=== PATIENT | female | born 1950 | race Caucasian/White ===

== ENCOUNTER → 2016-04-10 | Outpatient (CLI) | payer OTHER ==
--- NOTE | 2016-04-10 16:13 | MAMMOGRAPHY REPORT ---
BILATERAL DIGITAL SCREENING MAMMOGRAM WITH CAD: 04/10/2016 CLINICAL HISTORY: Routine screening. Patient has no complaints. TECHNIQUE: Current study was also evaluated with a Computer Aided Detection (CAD) system. Bilatera l CC and MLO views were obtained. COMPARISON: Comparison is made to exams dated: 06/21/2010 mammogram, 06/05/2009 mammogram, 05/26/2008 mammogram, and 04/14/2007 mammogram - [facility]. BREAST COMPOSITION: There are scattered areas of fibroglandular density in both breasts. FINDINGS: No suspicious masses, calcifications, or areas of architectural distortion are noted [facility]. There has been no significant interval change compared to prior exams. There is a sta ble benign intramammary lymph node in the right upper-outer quadrant. Small circumscribed benign-ap pearing 4 mm mass seen within the left central breast is also stable dating back to the 2007 exam. IMPRESSION: ACR BI-RADS CATEGORY 2: BENIGN There is no mammographic evidence of malignancy. A 1 year screening mammogram is recommended. The p atient will receive written notification of the results. Approximately 10% of breast cancers are not detected with mammography. A negative mammographic repor t should not delay biopsy if a clinically suggestive mass is present. Dorys Lundy M.D. ah/:04/10/2016 13:56:36 Shovel Logger: Mandie Ansari [facility] letter sent: Normal 1/2 BI-RADS Code: ACR BI-RADS Category 2: Benign
== END | disposition home or self-care (01) ==
LOC: C.MAMM 10:32
PROVIDERS: ATTEND Family Medicine
DX: Z12.31 Encounter for screening mammogram for malignant neoplasm of breast (principal)

== ENCOUNTER 2019-03-23 05:10 | Inpatient (IN) ==
--- NOTE | 2019-02-25 13:49 | PAT Medication Instructions ---
Medication Instructions Date of Service February 25, 2019 Home Medications Metamucil 2 tbsp PO QAM ibuprofen [Advil] 200 mg PO Q6H PRN ASK your surgeon for instructions ibuprofen [Advil] 200 mg PO Q6H PRN DO NOT take the morning of surgery Metamucil 2 tbsp PO QAM Other Notes If you have any questions please call us at [phone] or [phone] or [phone] or [phone]
--- NOTE | 2019-02-26 09:19 | Anesthesiology Consultation ---
Date of Service February 26, 2019 Assessment & Plan (1) Encounter for pre-operative examination: PCP Clearance (Bacilio MIKE) 02/24/19 = "Barring any significant abnormalities with preoperative testing, she is, at this time, considered an acceptable medical risk for the planned procedure and is medically cleared for right total knee arthroplasty as scheduled on March 23, 2019." Chart Review Chart Review: Acceptable Risk for Surgery (pending pre op testing -- labs, EKG and CXR) and Patient seen in Pre Admission Testing Consults Requested none Teaching & Discussion Instructed NPO after midnight before surgery, except medications with 15 cc of water. Medication instructions provided according to the PAT guidelines. History Surgery Operation Date: 03/23/19 07:00 Proposed Procedures p Right Total Knee Arthroplasty - Gokul Fontanez MD Height/Weight Height: 5 ft 4 in Weight: 87.5 kg Allergies Allergy/AdvReac Type Severity Reaction Status Date / Time bee venom protein (honey bee) Allergy Mild Hives Verified 02/25/19 10:17 Medications Home Medications Medication Instructions Recorded Confirmed Last Taken Metamucil 2 tbsp PO QAM 09/22/18 02/25/19 10/05/18 ibuprofen [Advil] 200 mg PO Q6H PRN 02/25/19 02/25/19 Unknown Past Medical History Medical History Osteoarthritis of right knee Scoliosis Exercise / Class Metabolic Activity II 4-5 Yardwork/Stairs/Walk up hill (Denies CP or SOB with 1 FOS) Past Surgical History Surgical History History of bilateral tubal ligation History of cholecystectomy History of colonoscopy History of dilatation and curettage History of tooth extraction Past Anesthesia History No Hx of Anesthesia Complications and No Family Hx of Anesthesia Complications History of PONV No Hx of PONV and No Hx of Motion Sickness Social History Smoking Status: Never smoker Do You Dip or Chew Tobacco: No Hx Alcohol Use: Yes Alcohol type: beer, wine and hard liquor alcohol intake frequency: a few times a week Hx Substance Use: No substance use type: does not use Review of Systems Pt denies any recent chest pain, shortness of breath, palpitations, cough, fever or URI. +morning congestion/post nasal drip Physical Exam Vital Signs BP: 106/69 P: 64bpm SPO2: 96% RA T: 98.3 F R: 12 ENMT Mouth: + dental bridge (upper L) and + chipped teeth (bottom L cuspid); no loose teeth Thyromental Distance: < 3.5 Finger Breadths (3) Mallampati Class: I Neck normal visual inspection; neck extension not limited Respiratory normal respiratory effort Auscultation: lungs clear to auscultation bilaterally Cardiovascular Rate/Rhythm: regular rate and regular rhythm Heart Sounds: no murmur Testing Laboratory Results 02/26/19 09:26 02/26/19 09:26 PT 10.4 Seconds (9.0-12.0) 02/26/19 09:26 INR 1.0 (0.9-1.1) 02/26/19 09:26 APTT 25.5 Seconds (21.0-31.0) 02/26/19 09:26 Blood Type B Positive 02/26/19 09:26 Antibody Screen NEGATIVE 02/26/19 09:26 Electrocardiogram Date: 02/26/19 Findings: + SB @ Chest X-Ray Date: 02/26/19 Findings: + NAD
--- NOTE | 2019-02-26 09:53 | XRay Report ---
XR chest Pre-admission PA/Lat CLINICAL HISTORY: Preoperative evaluation. COMPARISON STUDY: Chest radiograph May 23, 2009. FINDINGS: Lung volumes are normal. Lungs are clear. There is no pneumothorax or pleural effusion. Car diac size is normal. Mediastinal contours are normal. There is no evidence for pulmonary edema. Incid ental note is made of several healed left rib fractures. IMPRESSION: No acute cardiopulmonary findings. ACT 112: Negative or not required by law. Electronically signed by: Bola Stallworth M.D. 02/26/2019 9:52 AM
[2019-02-26 10:25] LABS: Basophils # (auto) 0.04 K/uL (0-0.2); Basophils % (auto) 0.7 %; Eosinophils # (auto) 0.11 K/uL (0-0.5); Hematocrit (blood only) 41.4 % (37-47); Hemoglobin 13.8 g/dL (12.0-16.0); Immature Granulocytes # (auto) 0.01 K/uL (0.00-0.02); Immature Granulocytes % (auto) 0.2 %; Lymphocytes # (auto) 1.86 K/uL (1.2-3.4); Lymphocytes % (auto) 33.6 %; Mean Corpuscular Hemoglobin 28.7 pg (25-34); Mean Corpuscular Hgb Conc 33.3 g/dL (32-36); Mean Corpuscular Volume 86.1 fL (80-100); Mean Platelet Volume 9.3 fL (7.4-10.4); Monocytes # (auto) 0.43 K/uL (0.11-0.59); Monocytes % (auto) 7.8 %; Neutrophils # (auto) 3.08 K/uL (1.4-6.5); Neutrophils % (auto) 55.7 %; Platelet Count 275 K/uL (130-400); RDW Coefficient of Variation 14.1 % (11.5-14.5); RDW Standard Deviation 44.4 fL (36.4-46.3); Red Blood Count 4.81 M/uL (4.2-5.4); White Blood Count 5.53 K/uL (4.8-10.8)
[2019-02-26 10:32] LABS: BUN Creatinine Ratio 15.9 (10-20); Creatinine Clr Calc Pharmacy 60.5 ml/min; Est GFR (African American) 69.7; Est GFR (Non-African American) 60.1; Potassium 3.9 mmol/L (3.5-5.1)
[2019-02-26 10:40] LABS: Partial Thromboplastin Ratio 0.9; Partial Thromboplastin Time 25.5 Seconds (21.0-31.0); Prothrombin Time 10.4 Seconds (9.0-12.0)
[2019-03-23] MEDS ORDERED: TRANEXAMIC ACID 1,000 MG **IV Intra-op IV SCH (06:00)
[2019-03-23] MEDS ORDERED: METOCLOPRAMIDE HCL 10 MG TABLET PO SCH (06:00)
[2019-03-23] MEDS ORDERED: ROPIVACAINE 0.5% HCL/PF 150 MG, BUPIVACAINE 0.5% MPF 30 ML, EPINEPHrine 0.15 MG, Ketoro... INFIL SCH (06:00)
[2019-03-23] MEDS ORDERED: TRAMADOL HCL 50 MG TABLET PO SCH (06:00)
[2019-03-23] MEDS ORDERED: CEFAZOLIN 2000MG 2,000 MG/15 ML SYR IV SCH (06:00)
[2019-03-23] MEDS ORDERED: OXYCODONE HCL 10 MG TABCR (OXYCONTIN) PO SCH (06:00)
[2019-03-23] MEDS ORDERED: CeleBREX 200 MG CAP PO SCH (06:00)
[2019-03-23] MEDS ORDERED: ACETAMINOPHEN 500 MG TAB PO SCH (06:00)
[2019-03-23] MEDS ORDERED: LR 500ML BOLUS, THEN 15ML/HR IV SCH (06:00)
[2019-03-23] MEDS ORDERED: cloNIDine HCL 0.1 MG/24 HR TRANSDERM SYS TD SCH (06:00)
[2019-03-23] MEDS ORDERED: dexAMETHasone 4 MG TAB PO SCH (06:00)
[2019-03-23] MEDS ORDERED: FAMOTIDINE 20 MG TAB PO SCH (06:00)
[2019-03-23] MEDS ORDERED: LR 60ML/HR IV SCH (06:00)
[2019-03-23] MEDS ORDERED: TRANEXAMIC ACID 1,000 MG **IV Pre-op IV SCH (06:00)
[2019-03-23] MEDS ORDERED: GABAPENTIN 300 MG CAP PO SCH (06:00)
[2019-03-23] MEDS ORDERED: BUPIVACAINE 0.5 % 5 MG/1 ML PF 10ML VIAL ONE (06:13)
[2019-03-23] MEDS ORDERED: PROPOFOL IV EMULSION 10 MG/ML 20 ML VIAL IV ONE ×3 (06:24→09:52)
[2019-03-23] MEDS ORDERED: LIDOCAINE HCL 2% 2 ML VIAL/AMP(20MG/ML) INFIL ONE (06:24)
[2019-03-23] MEDS ORDERED: MIDAZOLAM HCL 1 MG/ML 2ML VIAL ONE ×2 (06:24)
[2019-03-23] MEDS ORDERED: ONDANSETRON INJ 2 MG/ML 2 ML VIAL IV PRN ×2 (06:38→11:16)
[2019-03-23] MEDS ORDERED: ATROPINE SULFATE 0.1 MG/ML 10ML SYR IV PRN (06:38)
[2019-03-23] MEDS ORDERED: ePHEDrine sulfate 50 MG/ML AMP IV PRN (06:38)
[2019-03-23] MEDS ORDERED: fentaNYL citrate 100 MCG/2 ML VIAL IV PRN (06:38)
--- NOTE | 2019-03-23 06:43 | History & Physical Bridge Note ---
Date of Service March 23, 2019 History & Physical Bridge Note I have examined the patient, reviewed the History & Physical and in the interval since the performance of the History & Physical I have noted the following changes of clinical significance: no changes noted
[2019-03-23] MEDS ORDERED: BACITRACIN INJ 50,000 UNIT VIAL ONE (06:46)
[2019-03-23] MEDS ORDERED: ORTHO JOINT ANESTHETIC ONE (06:46)
[2019-03-23] MEDS ORDERED: VANCOMYCIN HCL 1000MG/20ML VIAL ONE (06:47)
[2019-03-23] MEDS ORDERED: ePHEDrine sulfate 50 MG/ML SYR ONE (09:29)
--- NOTE | 2019-03-23 10:18 | Operative Report ---
Post Operative Report Pre & Post Diagnosis Operation Date: 03/23/19 07:00 Pre-Op Diagnosis: Right Knee Arthritis Post-Op Diagnosis: Right Knee Arthritis I identified the patient and participated in the time-out.: Yes Procedure Operation Date: 03/23/19 07:00 Actual Procedures p Right Total Knee Arthroplasty(Right) - Gokul Fontanez MD Surgeon Gokul Fontanez M.D. Esthetician/Owner Dea Douglas PA-C Estimated Blood Loss 25 Findings Consistent with Post-Op Diagnosis Specimens bone and soft tissue Drains None Anesthesia Type MAC Spinal Regional Complications none Description of Procedure Patient was taken to the operating room and placed under spinal anesthesia. She was also given a peripheral nerve block preoperatively. She was given 2 g of IV Ancef for surgical prophylaxis. Time out was performed. She was prepped and draped in routine sterile fashion. I was present during the entire case and assisted with positioning, exposure, implantation of hardware, closure and dressings. Please see Dr. Fontanez's operative report for further detail. Patient was awakened and transferred to the recovery room in stable condition. I attest to the content of the Intraoperative Record and any orders documented therein. Any exceptions are noted below.
--- NOTE | 2019-03-23 10:49 | Operative Report ---
Post Operative Report Pre & Post Diagnosis Operation Date: 03/23/19 07:00 Pre-Op Diagnosis: Right Knee Arthritis Post-Op Diagnosis: Right Knee Arthritis I identified the patient and participated in the time-out.: Yes Procedure Operation Date: 03/23/19 07:00 Actual Procedures p Right Total Knee Arthroplasty(Right) - Gokul Fontanez MD Surgeon Gokul Fontanez MD Manager Bar Dea Douglas PA-C Estimated Blood Loss 25 Findings Consistent with Post-Op Diagnosis Specimens Bone and soft tissue Anesthesia Type MAC Regional Complications none Disposition Accompanied Patient To Recovery: No Disposition: Recovery Room Indications Patient 68 years old with end-stage arthritis of her right knee refractory to nonsurgical methods of management. She has elected to proceed with operative intervention. Description of Procedure Informed consent obtained. Patient identified. She identified the operative site as the right knee. I marked with my initials. Preop surgical timeout performed. Preop dose of IV antibiotics given. She was positioned supine on the OR table with a bump under the right calf tourniquet on the right thigh and a bump under the right hip. The leg was prepped and draped in the usual sterile fashion. DVT prophylaxis with foot pumps and postoperatively with early mobility and Lovenox. The examination under anesthesia revealed range of motion 0/10/115 with varus alignment and no significant varus or valgus laxity. She received TXA preoperatively. Limb exsanguinated with the Esmarch. Tourniquet inflated to 250 mmHg. A midline longitudinal incision was made followed by medial parapatellar arthrotomy. A medial soft tissue release was performed. The synovial reflection in the lateral gutter was released. Retropatellar fat pad resected. Cruciate ligaments were resected. Patella was easily everted. Soft tissue on the anterior aspect the distal femur was resected. There were grade 3 and 4 changes of the patella. There were grade 4 changes medial aspect of the lateral compartment and grade 4 changes with bony eburnation and wear in the medial compartment. Loss of medial meniscus. ACL looked small with large notch osteophytes. Osteophytes around the knee were removed. Cruciate ligaments were resected. A intramedullary alignment kvng was inserted into the tibia. The guide was aligned with the tibial tubercle and set to resect 10 off of the lateral side corresponding to a 4 mm medial cut. The guide was pinned into place and the Xomed limit kvng was utilized to confirm appropriate slope and frontal plane alignment. This cut was carefully made protecting the patellar tendon. The tibia was sized to a 4. A steamboat pilot hole was drilled into the distal femur followed by the insertion of the distal femoral cutting block. 6 degrees right knee valgus 14 mm thick cut was made. Cruciate ligaments were protected. Cut was made in the extension gap was a slightly tight but symmetric 10. The epicondylar axis was marked out and the distal femoral sizing guide was applied. It was a 4-1/2. The guide was set to 5 and the external rotation holes were drilled. A size 4 block was then utilized to half size the implant. Confirmed no notching of anterior tibia and the cuts were made protecting the collateral ligaments. The flexion gap was a symmetric 12.5. After little bit more releasing the extension gap was also a symmetric 12.5. The box cutting guide was applied lateralized pinned in place and the box cut was made. The size 4 femur was applied with good fit. The tibia was prepared with the keel and punch and the 12.5 spacer was inserted with full extension slight springiness good stability and full extension mid position and at 90 degrees. Attention was turned to the patella where it was measured to be 23 mm in thickness. The guide was set to preserve 15 mm of bone and the cut was made. The 38 paddle was selected aligned and lug holes drilled. Trialing showed lateral patellar tracking which was relieved at the end of the case with release of the tourniquet. Osteophytes in the back of the knee were removed. Soft tissues kept moist throughout the case. Ortho joint mix injected in the back the knee. Bony surfaces prepared with pulse lavage and dried. 2 bags of Simplex P cement were mixed and while in a doughy state the implants were cemented into place femur tibia and patella and the knee was held in full extension until the cement hardened. Prior to that the canals were plugged with bone. The remainder the Ortho joint mix was injected while the cement was hardening and once this was accomplished the tourniquet was let down after 100 minutes of inflation and meticulous hemostasis was performed. Trialing again was performed in the 12.5 give the best fit with range of motion and stability. Trace varus valgus laxity in mid position and no looseness in full extension or mid position. The knee was straight. The back the knee was inspected for cement and final irrigation and implantation of the spacer was applied. The knee was reduced. Patellar tracking was fine with no hands technique. Final irrigation was performed along with injection of the remainder of the Ortho joint mix. The extensor mechanism was closed above the equator the patella with interrupted #2 FiberWire and below the equator with running and interrupted #1 Vicryl. The skin was closed in layers with 0 and 2-0 Vicryl and alfonso on the skin. Composite patellar thickness was 23 mm at the conclusion of the procedure and gravity assisted flexion with the extensor mechanism closed was approximate 115 degrees. The leg was cleaned with wet and dry sponges and a soft sterile dressing was applied Xeroform 4 x 4's ABD full-length Sandro wrap and knee immobilizer. Patient was awakened from anesthesia without difficulty and taken to the recovery room in stable condition. The resected bone was sent for specimen. There were no complications. Counts were correct and blood loss is estimated to be 25 cc. An additional dose of TXA was given. At the conclusion of the operation spoke patient's family informed of my findings. Postoperative instructions were given. She will have Lovenox for DVT prophylaxis. Rehab according to the standard TKA protocol. She may weight-bear as tolerated. I attest to the content of the Intraoperative Record and any orders documented therein. Any exceptions are noted below.
--- NOTE | 2019-03-23 10:49 | Anesthesiology Progress Note ---
Date of Service March 23, 2019 Anesthesia Post Procedure Vital Signs Vital Signs: Temp Pulse Pulse Resp BP Pulse Ox 03/23/19 10:45 58 L 16 106/61 93 03/23/19 10:35 97.5 F L 63 20 106/53 L 93 03/23/19 10:25 62 16 98/63 L 93 03/23/19 10:18 97.5 F L 70 16 102/58 L 95 03/23/19 05:45 97.9 F 62 20 124/78 97 Pain Intensity Right Arm: Pain Intensity: 7 Transfer of Care Handoff Completed per policy Notes Mental Status: alert / awake / arousable and participated in evaluation Patient Amnestic to Procedure: Yes Nausea / Vomiting: adequately controlled Pain: adequately controlled Airway Patency, RR, SpO2: stable & adequate BP & HR: stable & adequate Hydration State: stable & adequate Neuraxial Anesthesia: was administered and sensory block is resolving Anesthetic Complications: no major complications apparent and Pt Satisfied with anesthetic care
--- NOTE | 2019-03-23 11:12 | XRay Report ---
XR knee RT 1 or 2V routine HISTORY: 68 years-old Female Surgical Post Op right knee total joint arthroplasty. History of degene rative joint disease COMPARISON: Leg length study 03/12/2019 TECHNIQUE: 2 views of the right knee FINDINGS: Right knee total joint arthroplasty and patellar resurfacing. Satisfactory alignment without acute fr acture or retained foreign body. Anterior midline skin alfonso are noted along with expected postsurg ical soft tissue swelling and deep tissue air. Arterial calcifications are noted. IMPRESSION: Satisfactory alignment of the right knee total joint arthroplasty. ACT 112: Negative or not required by law. The above report was generated using voice recognition software. It may contain grammatical, syntax o r spelling errors. Electronically signed by: Allan Staples M.D. 03/23/2019 11:11 AM
[2019-03-23] MEDS ORDERED: MAGNESIUM HYDROXIDE SUSP 30 ML UDC PO PRN (11:16)
[2019-03-23] MEDS ORDERED: OXYCODONE HCL IR 5 MG TAB (IMMEDIATE RELEASE) PO PRN (11:16)
[2019-03-23] MEDS ORDERED: bisacodyL 10 MG SUPP PR PRN (11:16)
[2019-03-23] MEDS ORDERED: HydrALAZINE HCL 20 MG/ML VIAL IV PRN (11:16)
[2019-03-23] MEDS ORDERED: METOCLOPRAMIDE HCL INJ 5 MG/ML 2 ML VIAL IV PRN (11:16)
[2019-03-23] MEDS ORDERED: HYDROmorphone INJ 1 MG/ML SYRINGE IV PRN (11:16)
[2019-03-23] MEDS ORDERED: NALOXONE HCL 0.4 MG/1 ML VIAL/CARP IV PRN (11:16)
[2019-03-23] MEDS: CHECK CLONIDINE PATCH PLACEMENT SCH ×3 (11:46→23:02)
[2019-03-23] MEDS: KETOROLAC TROMETHAMINE 15 MG/ML VIAL IV SCH ×3 (11:57→23:02)
[2019-03-23] MEDS: SODIUM CHLORIDE 0.9% 1000ML 1,000 ML IV SCH ×2 (11:57→21:33)
[2019-03-23] MEDS: ACETAMINOPHEN 500 MG TAB PO SCH ×2 (14:19→22:56)
[2019-03-23] MEDS: TRAMADOL HCL 50 MG TABLET PO PRN ×3 (14:25→20:53)
--- NOTE | 2019-03-23 15:17 | Orthopedic Progress Note ---
Date of Service March 23, 2019 Assessment & Plan (1) Osteoarthritis of right knee: POD 0 - Right total knee arthroplasty May be out of bed, WBAT RLE with knee immobilizer and walker assistance Ice to right knee as needed for pain/swelling Keep dressings intact, reinforce as needed. Allowed for bedside exercises, encouraged knee extension and ankle pumps. Pain medication as prescribed Start Lovenox tonight for DVT prophylaxis. Continue Koffi stockings and AV impulse boots. Regular diet as ordered. PT/OT to start tomorrow Case management for discharge planning. She would like to go home tomorrow with in home nursing and PT. Reviewed post operative x-rays with patient All questions answered, will discuss findings with Dr. Fontanez Will re-eval in AM. Present on Admission?: Yes Subjective Patient doing well, resting in bed, daughters at bedside. Right knee with ice. Denies significant pain, some pain, just took some Tramadol. Denies numbness or tingling right leg. Tolerated lunch. Denies headaches, shortness of breath or chest pain. Physical Exam Physical Exam: Right knee: Dressings clean, dry, intact. Ice in place. No calf tenderness with palpation. Able to dorsiflex 4+/5 due to spinal. Distal sensation normal, dorsalis pedis pulse 1+. Foot warm, moves toes well. 5/5 strength with plantarflexion. Results & Data Vital Signs (Past 12 Hours) Vital Signs Temp Pulse Pulse Pulse Resp BP Pulse Ox 03/23/19 13:55 36.3 C L 81 18 120/70 96 03/23/19 13:03 36.9 C 72 16 129/74 96 03/23/19 12:03 56 L 16 122/77 95 03/23/19 11:28 36.5 C 67 16 114/71 94 03/23/19 10:45 58 L 16 106/61 93 03/23/19 10:35 36.4 C L 63 20 106/53 L 93 03/23/19 10:25 62 16 98/63 L 93 03/23/19 10:18 36.4 C L 70 16 102/58 L 95 03/23/19 10:00 36.4 C L 62 16 111/70 94 03/23/19 05:45 36.6 C 62 20 124/78 97 Diagnostic Findings XR knee RT 1 or 2V routine HISTORY: 68 years-old Female Surgical Post Op right knee total joint arthroplasty. History of degenerative joint disease COMPARISON: Leg length study 03/12/2019 TECHNIQUE: 2 views of the right knee FINDINGS: Right knee total joint arthroplasty and patellar resurfacing. Satisfactory alignment without acute fracture or retained foreign body. Anterior midline skin alfonso are noted along with expected postsurgical soft tissue swelling and deep tissue air. Arterial calcifications are noted. IMPRESSION: Satisfactory alignment of the right knee total joint arthroplasty.
[2019-03-23] MEDS: CEFAZOLIN 2000MG 2,000 MG/15 ML SYR IV SCH ×2 (15:38→22:56)
[2019-03-23] MEDS: DOCUSATE SODIUM 100 MG CAP PO SCH (20:54)
[2019-03-23] MEDS ORDERED: SENNA 8.6 MG TAB PO SCH (21:00)
[2019-03-23] MEDS: ENOXAPARIN INJ 30 MG/0.3 ML SYR SQ SCH (22:56)
[2019-03-24] MEDS: TRAMADOL HCL 50 MG TABLET PO PRN ×3 (03:26→13:13)
[2019-03-24] MEDS: KETOROLAC TROMETHAMINE 15 MG/ML VIAL IV SCH (05:21)
[2019-03-24] MEDS: ACETAMINOPHEN 500 MG TAB PO SCH ×2 (05:21→13:13)
[2019-03-24 05:53] LABS: Hemoglobin 10.8 g/dL (12.0-16.0); Mean Corpuscular Hemoglobin 28.6 pg (25-34); Mean Corpuscular Hgb Conc 33.8 g/dL (32-36); Mean Corpuscular Volume 84.9 fL (80-100); Platelet Count 198 K/uL (130-400); RDW Coefficient of Variation 14.2 % (11.5-14.5); RDW Standard Deviation 44.2 fL (36.4-46.3); Red Blood Count 3.77 M/uL (4.2-5.4); White Blood Count 7.26 K/uL (4.8-10.8)
[2019-03-24 06:22] LABS: BUN Creatinine Ratio 20.7 (10-20); Calcium 7.9 mg/dl (8.5-10.1); Creatinine Clr Calc Pharmacy 73.7 ml/min; Est GFR (African American) 87.7; Est GFR (Non-African American) 75.7
[2019-03-24] MEDS ORDERED: dexAMETHasone 4 MG TAB PO SCH (08:00)
--- NOTE | 2019-03-24 08:03 | Anesthesiology Progress Note ---
Date of Service March 24, 2019 Anesthesia Post Procedure Vital Signs Vital Signs: Temp Pulse Pulse Pulse Resp BP Pulse Ox 03/24/19 07:49 36.9 C 65 13 100/68 96 03/24/19 03:13 36.7 C 72 16 93/60 L 96 03/23/19 22:54 36.7 C 68 16 106/64 94 03/23/19 20:30 36.4 C L 70 16 119/68 96 03/23/19 15:54 36.5 C 66 16 114/71 94 03/23/19 13:55 36.3 C L 81 18 120/70 96 03/23/19 13:03 36.9 C 72 16 129/74 96 03/23/19 12:03 56 L 16 122/77 95 03/23/19 11:28 36.5 C 67 16 114/71 94 03/23/19 10:45 58 L 16 106/61 93 03/23/19 10:35 36.4 C L 63 20 106/53 L 93 03/23/19 10:25 62 16 98/63 L 93 03/23/19 10:18 36.4 C L 70 16 102/58 L 95 03/23/19 10:00 36.4 C L 62 16 111/70 94 Pain Intensity Right Arm: Pain Intensity: 7 Right Knee: Pain Intensity: 6 Notes Mental Status: alert / awake / arousable and participated in evaluation Patient Amnestic to Procedure: Yes Nausea / Vomiting: adequately controlled Pain: adequately controlled Airway Patency, RR, SpO2: stable & adequate BP & HR: stable & adequate Hydration State: stable & adequate Neuraxial Anesthesia: was administered and sensory block resolved Anesthetic Complications: no major complications apparent and Pt Satisfied with anesthetic care
[2019-03-24] MEDS: CHECK CLONIDINE PATCH PLACEMENT SCH (08:38)
[2019-03-24] MEDS: DOCUSATE SODIUM 100 MG CAP PO SCH (08:38)
[2019-03-24] MEDS ORDERED: MULTIVITAMIN TAB PO SCH (09:00)
[2019-03-24] MEDS ORDERED: PSYLLIUM 58.6% POWDER PACKET PO SCH (09:00)
[2019-03-24] MEDS: ENOXAPARIN INJ 30 MG/0.3 ML SYR SQ SCH (09:40)
--- NOTE | 2019-03-24 10:36 | Progress Note ---
DATE: 03/24/2019 She is resting comfortably in bed. She did exceptionally well with physical therapy. Her pain is well controlled, and she is tolerating a regular diet. She has had no chest pain or shortness of breath. She has not been lightheaded or dizzy. She is afebrile. Her vital signs are stable, but her blood pressure is running a little bit on the low side. We will discontinue the clonidine patch. Urine output is adequate. White count 7, hemoglobin 11, hematocrit 32, platelets 198. PRP is noted. Dorsalis pedis is 1+. Sensation normal. Strength ankle and toe plantar flexion, dorsiflexion 5/5. Her calf is not tender. She has slight flexion in her knee. Dressing is clean and dry. X-RAYS: X-rays show no evidence of complication. The arthroplasty is well-positioned. Findings and x-rays have been reviewed with her. IMPRESSION: Acute blood loss anemia which is asymptomatic. This is related to surgery. She is also status post a right total knee replacement. PLAN: The plan is to have her eat lunch and do afternoon PT. If she does well with physical therapy and her pain is well controlled, we will consider discharging her home. The plan will be for home health nursing and PT. We talked about her medications. Pain medicine, blood thinner, regular meds, stool softener. She will need a CBC next week. She will do PT and OT per protocol. She can be out of the knee immobilizer, but always needs to walk with walker. We talked about therapy and specifically getting her knee straight with heel props. Bathing instructions are given. If she has any problems with fevers, swelling, pain and drainage, numbness, tingling, pain or any other issues, please call the office. She has a followup appointment in 2 weeks for wound check and staple removal.
--- NOTE | 2019-03-25 09:39 | Discharge Summary ---
Date of Service March 25, 2019 Discharge Data Consultations 03/23/19 11:16 Consult Case Management - Discharge Planning Routine Procedures Performed Operation Date: 03/23/19 07:00 Actual Procedures p Right Total Knee Arthroplasty(Right) - Gokul Fontanez MD Hospital Course (1) Osteoarthritis of right knee: Patient was admitted to the [facility] after undergoing and elective right total knee arthroplasty for end-stage osteoarthritis. Her surgery was performed by Dr. Gokul Fontanez. Surgery was on March 23, 2019. She tolerated the surgery well without any intraoperative complications. Her surgery was performed with spinal anesthesia and peripheral nerve block. She was given 2 g of IV Ancef for surgical prophylaxis and this was continued for 24 hours after her procedure. She was given tranexamic acid preoperatively and postoperatively for bleeding control. In the recovery room an x-ray of her right knee was obtained and showed a stable right knee prosthesis with no evidence of fracture. Neutral alignment. Postoperatively, she was allowed out of bed, weight-bear as tolerated on her right lower extremity with the assistance of a walker and any immobilizer on her right knee. She was instructed to ice and elevate for swelling. She was started on Lovenox 30 mg twice a day the evening of her surgery. She was also given AV impulse boots and AUDI stockings for DVT prophylaxis. She was given a regular diet which she tolerated well during her inpatient stay. Her pain was well controlled and pain medications were available to her which consisted of IV Dilaudid, oxycodone, tramadol, Toradol and Tylenol. She was seen and evaluated by physical therapy and occupational therapy and was safe and comfortable when out of bed. She was taught exercises that she can do on her own at home. She was encouraged to work on extension of her right knee due to her preoperative flexion contracture. She was medically stable during her inpatient stay and no inpatient medicine consult was obtained. Her vital signs remained stable. She was seen and evaluated by case management for disposition needs. She chose to go home with in-home health and physical therapy. This was arranged by the residential case manager. Due to no postoperative complications she was deemed safe for home by therapy and was discharged to her home with her daughters in stable condition on March 24, 2019. (2) Acute blood loss anemia: She did develop postoperative acute blood loss anemia due to her having a right total knee arthroplasty. She remained asymptomatic during her inpatient stay. This will be monitored as an outpatient with a repeat CBC on March 29, 2019. She was instructed to call with any symptoms which include a racing heartbeat, lightheadedness or dizziness, or syncopal episodes. Discharge Instructions New Medicine: * You will likely be taking one or more of these medications: 1. Lovenox 30 mg SQ - You will be on Lovenox for 2-4 weeks after surgery to prevent blood clots. Do not take anti-inflammatory pills (Advil or Aleve) while on Lovenox. Aspirin, 81 mg is OK. - script sent electronically to pharmacy 2. Oxycodone - Take, as directed, when you need it, every four to six hours to control your pain. - script sent electronically to pharmacy 3. Tramadol - take, as directed, when you need it, every four to six hours to control your pain. - script sent electronically to pharmacy 3. Colace & Senokot - Take to prevent constipation which can be caused by narcotics. These can be bought [id number] at the pharmacy. 4. Tylenol - take 500mg-1000mg every 8 hours as needed for mild pain. This can be bought over the counter at the pharmacy. * The most common side effects of pain medicine and iron are nausea and constipation. If nausea or constipation is too much of a problem or if you have any questions about your new medicines or doses, call [facility] at . We will try to help you manage these issues. "VERY IMPORTANT TO READ AND REVIEW" Blood Clots and Blood Thinning Medicine: * You are given Lovenox during the immediate post-operative period to lessen the risk of blood clots forming in your legs and/or lungs. Lovenox is usually given for 2-4 weeks after surgery. * You will need to get a CBC drawn on Friday03/29/19. Script provided. Have drawn by home health or go to outpatient clinic to have drawn. Will be drawn at facility if you are at inpatient rehab or penitentiary facility. Physical Therapy: * Do your physical therapy at home. These are the exercises you learned while in the hospital (quad sets, leg raises, calf pumps, gluteal squeezes, knee bending, and heel props.) You should do these exercises 3-4 times per day. * You will either go to inpatient rehab ([facility]), home with Home Therapy and nursing or home with outpatient rehab. You should do rehab with the therapist 2-3 times per week. You should do therapy on your own daily. * You may bear full weight on your leg with crutches or walker unless otherwise advised. Home Exercise: * You were shown a series of exercises (heel props, heel slides, etc.) in the hospital. Do these exercises three to four times each day including the exercises you were shown in physical therapy. Walking: * You may be up for short periods of time. Standing and walking for 1-2 hours at a time is usually okay. You should not stand or walk for excessive periods of time as this may Cause increased pain and swelling. SELF CARE INSTRUCTIONS AFTER TOTAL KNEE REPLACEMENT A. You may need to continue a physical therapy program after discharge from the hospital. There are several options available to you. Your doctor will assist you in selecting the best one for you. 1. An out-patient facility 2 to 3 times a week for therapy or home therapy. 2. Continue working on all exercises taught to you in the hospital. Your goals should be to increase bending of your knee to 90 degrees and beyond and to fully straighten your knee. B. Your therapist will notify you when you are able to progress from a walker to a cane. C. Wear TEDS as much as possible.~ They may be removed at night for laundering. D. Do not place a pillow behind your knee when resting. A pillow at your ankle is okay. E. Ice your knee 15-20 minutes every 2-3 hours and elevate it above the level of your heart. F. You may shower on the fourth day after surgery (Friday) using regular soap and water. Do not submerge until the wound is completely healed (approximately 2 weeks). You may shower immediately. If the dressing comes off, you may get incision wet after the 4th day of surgery. Patient incision dry. Redress with light dressing if necessary. G. Anyone who is touching your surgical incision area should wash their hands and wear gloves. H. Keep your incision covered with gauze pads under the AUDI hose until it is dry. I. Dressing to be changed on by home health. Apply light dressing to left knee and AUDI stocking. Reinforce dressing as needed. VERY IMPORTANT TO READ AND REVIEW A. YOU WILL BE GIVEN AN ORDER AT DISCHARGE FOR CBC (BLOOD WORK). PLEASE HAVE THIS DONE INSTRUCTED. PLEASE CALL OUR OFFICE AFTER YOUR BLOODWORK IS COMPLETE SO WE CAN TRACK YOUR RESULTS. IF YOU ARE GOING TO OUTPATIENT PHYSICAL THERAPY, YOU WILL NEED TO GO TO OUTPATIENT TESTING TO HAVE IT DRAWN. B. There are a few signs you need to watch for after you are home. Call [facility] if you notice any of the followin. Increased severe knee pain. Some pain is expected especially when you exercise. 2. Increased swelling in your leg or knee; pain or swelling of the calf muscle in either lower leg. 3. Any fluid drainage from the incision. 4. Shortness of breath or chest pain. 5. Numbness and tingling in the surgical extremity C. Please call [facility] at if you have any concerns or questions about your operation or recovery. The doctor or his nurse will return your call promptly. D. Do not have any elective dental work or other elective procedures done for 6 weeks after your knee replacement. When you have any invasive procedure (dental cleaning, extraction, colonoscopy etc) performed, you will need to take antibiotics to prevent infection from developing in your artificial joint. Tell your other health care providers you have an artificial joint. My office will supply you with further information and the antibiotics. Call your doctor if: * Temperature above 101 degrees F. * Pain not relieved by pain medicine ordered. * Increased drainage or redness from incision. * Notify your doctor with any questions or concerns.
== END 2019-03-24 16:27 | disposition home health service (06) | DRG 470 ==
LOC: ASU 05:10 → 3E 10:24

== ENCOUNTER 2024-03-22 05:19 | Observation (INO) ==
--- NOTE | 2024-02-09 14:46 | PAT Medication Instructions ---
Medication Instructions Date of Service February 09, 2024 Home Medications Medication Instructions Recorded apixaban 5 mg tablet (Eliquis) 5 mg PO BID #180 tabs 08/24/23 psyllium husk 3.4 gram/5.4 gram oral powder (Metamucil) 2 tbsp PO QAM ascorbate calcium (vitamin C) 500 mg tablet 500 mg PO DAILY calcium carbonate [Calcium 500] 500 mg PO QAM cholecalciferol (vitamin D3) 2,000 mg PO QAM zinc citrate 50 mg PO QAM apixaban 5 mg tablet (Eliquis) 5 mg PO BID aspirin 81 mg tablet,delayed release (Adult Aspirin Regimen) 81 mg PO QAM rosuvastatin 40 mg tablet 40 mg PO QAM metoprolol succinate 50 mg tablet,extended release 24 hr 50 mg PO QAM ASK your prescriber and surgeon aspirin 81 mg tablet,delayed release (Adult Aspirin Regimen) 81 mg PO QAM apixaban 5 mg tablet (Eliquis) 5 mg PO BID (From anesthesia perspective, apixaban/Eliquis needs to be stopped 72 hours/3 days before surgery. Please check if okay with doctor that prescribes this to you) DO NOT take the morning of surgery psyllium husk 3.4 gram/5.4 gram oral powder (Metamucil) 2 tbsp PO QAM ascorbate calcium (vitamin C) 500 mg tablet 500 mg PO DAILY calcium carbonate [Calcium 500] 500 mg PO QAM cholecalciferol (vitamin D3) 2,000 mg PO QAM zinc citrate 50 mg PO QAM Take morning of surgery With a small sip of water, OTHERWISE NOTHING TO EAT OR DRINK AFTER MIDNIGHT: rosuvastatin 40 mg tablet 40 mg PO QAM metoprolol succinate 50 mg tablet,extended release 24 hr 50 mg PO QAM Other Notes If you have any questions please call us at [phone] or [phone] or [phone] or [phone]
--- NOTE | 2024-02-17 09:52 | Anesthesiology Consultation ---
Date of Service February 17, 2024 Assessment & Plan (1) Encounter for pre-operative examination: - Infectious disease screening: Per assessment on 02/17/24- No known recent infectious disease contacts or current infectious disease symptoms. - Outpatient joint assessment: Pt currently scheduled for inpatient pathway. If surgeon requests review for outpatient joint pathway, patient is not recommended candidate for outpatient joint program from anesthesia standpoint based on available information. - S/P Right TKA (03/23/19): SAB at L4-5 (1 attempt) + regional at [facility] - Cardiology visit (12/04/23): "11/2023 NUC STRESS- without ischemia.. 11/2023 CT- Agatston Calcium Score is 1890.. CHADSVAS score 2.. Baseline echo pending. Advised f/u with PCP for ? vaginal bleeding vs. Hematuria.. Preop CV risk stratification- low cardiac risk for orthopedic surgery if indicated." > No vaginal bleeding or hematuria complaints noted at subsequent [facility] PCP evaluation 12/28/23. Echo done 01/13/24 was unremarkable. - Cardiology note (12/04/23): "..Nondiagnostic due to inability to achieve target heart rate normal limits is 98% MPHR and 1 yesterday that it was actually just medically stable for this procedure and anesthetic agent. Patient is low cardiac risk. Nuclear stress testing today is normal. May hold Eliquis for 48 hours if needed. May hold baby ASA if needed as well." Patient subsequently seen in PAT 02/17/24 and indicates she was provided with corrected preop Eliquis instructions to hold 72 hours prior to surgery. Patient advised that this is needed from neuraxial anesthesia perspective as well- Patient voiced understanding- indicates she will be holding 72 hours preop. Chart Review Chart Review: Acceptable Risk for Surgery and Patient seen in Pre Admission Testing Teaching & Discussion Pre-Anesthesia Teaching/Discussion Notes: Instructed NPO after midnight before surgery,except medications with 15 cc of water. Medication instructions provided according to the [facility] guidelines. History Surgery Operation Date: 03/22/24 09:00 Proposed Procedures p Right Anterior Total Hip Arthroplasty - Immanuel Bryan DO Height/Weight Height: 5 ft 4 in Weight: 89.6 kg Allergies Allergy/AdvReac Type Severity Reaction Status Date / Time adhesive Allergy Intermediate Rash Verified 02/09/24 08:33 bee venom protein (honey bee) Allergy Mild Hives Verified 02/09/24 08:33 No Known Drug Allergies Allergy Verified 02/09/24 08:33 Medications Home Medications Medication Instructions Recorded Confirmed Last Taken psyllium husk 3.4 gram/5.4 gram 2 tbsp PO QAM 09/22/18 02/09/24 03/21/19 08:00 oral powder (Metamucil) ascorbate calcium (vitamin C) 500 500 mg PO DAILY 08/18/20 02/09/24 Unknown mg tablet calcium carbonate [Calcium 500] 500 mg PO QAM 12/25/21 02/09/24 Unknown cholecalciferol (vitamin D3) 2,000 mg PO QAM 12/03/22 02/09/24 Unknown zinc citrate 50 mg PO QAM 12/03/22 02/09/24 Unknown apixaban 5 mg tablet (Eliquis) 5 mg PO BID #180 tabs 08/24/23 02/09/24 Unknown aspirin 81 mg tablet,delayed 81 mg PO QAM 12/29/23 02/09/24 Unknown release (Adult Aspirin Regimen) rosuvastatin 40 mg tablet 40 mg PO QAM 12/29/23 02/09/24 Unknown metoprolol succinate 50 mg 50 mg PO QAM 02/09/24 02/09/24 Unknown tablet,extended release 24 hr Past Medical History Medical History Anemia Per records, patient unaware Arthritis Cystocele, midline Hyperlipidemia Kidney stones Melanoma Moh's procedure 02/10/24- Great toe Osteoporosis Paroxysmal A-fib Dx 12/[address] Doshi Scoliosis Exercise / Class Metabolic Activity II 4-5 Yardwork/Stairs/Walk up hill (one FS (No CP, no SOB)) Past Family History Family History Mother , at age 80, [place] Diabetes Heart disease Myocardial infarction Cardiac disorder Father , at 76 secondary to [place] Myocardial infarction Stroke Sister Breast cancer Seizure Stroke Denies family history of Ovarian cancer Prostate cancer Colorectal cancer Past Surgical History Surgical History History of bilateral tubal ligation History of bladder surgery sling History of cholecystectomy History of colonoscopy History of dilatation and curettage History of knee replacement Right TKA (03/23/19): SAB at L4-5 (1 attempt) + regional at [facility] History of tooth extraction Past Anesthesia History No Hx of Anesthesia Complications and No Family Hx of Anesthesia Complications History of PONV No Hx of PONV and No Hx of Motion Sickness Social History Smoking Status: Never smoker Do You Dip or Chew Tobacco: No Hx Alcohol Use: Yes Alcohol type: beer alcohol intake frequency: holidays/special occasions only Hx Substance Use: No substance use type: does not use Review of Systems Patient denies chest pain, shortness of breath, dyspnea on exertion, fever, chills, cough, wheezing, palpitations. Physical Exam Vital Signs BP 99/65 P 64 TEMP 98.2 SP02 95%RA RESP 18 Physical Full cervical extension range of motion. Full TMJ range of motion. TMD 3 finger breaths Mallampati Score I Dentition: missing molars, crown Lungs: clear throughout to auscultation Cardiac: regular rate and rhythm, no murmurs noted Spine: normal Carotid arteries: negative bruit Extremities: no LE edema Lab Results Anesthesia Preop Results Results Anesthesia Widget: WBC 6.01 K/ul (4.8-10.8) 02/17/24 Hgb 12.3 g/dl (12.0-16.0) 02/17/24 Hct 37.2 % (37.0-47.0) 02/17/24 Plt 235 K/uL (130-400) 02/17/24 Na 138 mmol/L (136-145) 02/17/24 K 3.7 mmol/L (3.5-5.1) 02/17/24 Cl 102 mmol/L (98-107) 02/17/24 CO2 31 mmol/L (21-32) 02/17/24 BUN 15 mg/dl (6-23) 02/17/24 Creat 0.67 mg/dl (0.6-1.2) 02/17/24 Glucose Level 136 mg/dl (70-99(Fasting)) H 02/17/24 PT 11.2 Seconds (9.0-12.0) 02/17/24 PTT 28 Seconds (21-31) 02/17/24 INR 1.0 (0.9-1.1) 02/17/24 Blood Type B Positive 02/17/24 Antibody Screen NEGATIVE 02/17/24 Testing Electrocardiogram Date: 12/04/23 SB at 57bpm. RSR (V1)- nondiagnostic. "Probably normal" Chest X-Ray Date: 02/17/24 FINDINGS: No lines and tubes are seen. Calcified aortic knob is seen. The lungs are clear. No evidence of pleural effusion or pneumothorax. IMPRESSION: No acute chest disease. Echocardiogram Date: 01/13/24 Small left ventricle. EF 55-60%. Thickened aortic valve. Mild MR. Grade 1 diastolic dysfunction. Stress Test Date: 12/04/23 Type: nuclear SPECT perfusion images are considered to be within normal limits. No significant ischemia/infarction. LVEF 76%.
--- NOTE | 2024-03-18 07:49 | History & Physical Report ---
Date of Service March 18, 2024 Assessment & Plan (1) Arthritis of right hip: We will proceed with a right anterior total of arthroplasty. Postoperatively she will be started on Eliquis for DVT prophylaxis and kept overnight in the hospital for postop medical management. She plans to use home health upon dis charge. History of Present Illness Chief Complaint: Osteoarthritis of the right hip. Primary Care Provider: Karen Horner DO Cherelle is a pleasant 73-year-old female who has been dealing with chronic increasing right hip and groin pain. She saw my partner, Dr. 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 After failing conservative treatment, she has elected to proceed with a right anterior total of arthroplasty. Allergies Allergy/AdvReac Type Severity Reaction Status Date / Time adhesive Allergy Intermediate Rash Verified 02/09/24 08:33 bee venom protein (honey bee) Allergy Mild Hives Verified 02/09/24 08:33 No Known Drug Allergies Allergy Verified 02/09/24 08:33 Home Medications Medication Instructions Recorded Confirmed Type psyllium husk 3.4 gram/5.4 gram 2 tbsp PO QAM 09/22/18 02/09/24 History oral powder (Metamucil) ascorbate calcium (vitamin C) 500 500 mg PO DAILY 08/18/20 02/09/24 History mg tablet calcium carbonate [Calcium 500] 500 mg PO QAM 12/25/21 02/09/24 History cholecalciferol (vitamin D3) 2,000 mg PO QAM 12/03/22 02/09/24 History zinc citrate 50 mg PO QAM 12/03/22 02/09/24 History apixaban 5 mg tablet (Eliquis) 5 mg PO BID #180 tabs 08/24/23 02/09/24 Rx aspirin 81 mg tablet,delayed 81 mg PO QAM 12/29/23 02/09/24 History release (Adult Aspirin Regimen) rosuvastatin 40 mg tablet 40 mg PO QAM 12/29/23 02/09/24 History metoprolol succinate 50 mg 50 mg PO QAM 02/09/24 02/09/24 History tablet,extended release 24 hr Past Med/Surg History Problem List Medical History Anemia Per records, patient unaware Paroxysmal A-fib Dx 12/[address] Doshi Arthritis Cystocele, midline Melanoma Moh's procedure 02/10/24- Great toe Kidney stones Hyperlipidemia Osteoporosis Scoliosis Surgical History History of bladder surgery sling History of knee replacement Right TKA (03/23/19): SAB at L4-5 (1 attempt) + regional at [facility] History of bilateral tubal ligation History of dilatation and curettage History of colonoscopy History of cholecystectomy History of tooth extraction Family History Mother , at age 80, [place] Diabetes Heart disease Myocardial infarction Cardiac disorder Father , at 76 secondary to [place] Myocardial infarction Stroke Sister Breast cancer Seizure Stroke Denies family history of Ovarian cancer Prostate cancer Colorectal cancer Social History Smoking Status: Never smoker Second Hand Exposure: No; Do You Dip or Chew Tobacco: No; Tobacco Cessation Education Requested by Patient: No Hx Alcohol Use: Yes Alcohol type: beer Alcohol Intake Frequency: Monthly or Less Hx Substance Use: No Preferred Language: Upper Sorbian Communication Ability: Effective Visual Impairment: No Limitations Hearing Ability: Normal Capsule Inspector Required: No Beliefs That Will Affect Care: None marital status: Single Current Living Situation: Family current occupational status: retired current occupation: helps at [employer] Other Information That Helps Us Care for You: No Feels Safe at Home: Yes Safety Concerns: Feels Safe At This Time Childhood Exposure to Second-Hand Smoke: No Diet: regular Diet Comment: regular caffeine: Yes during the past year weight has: remained stable Dental Care, Regularly: Yes Physical Activity Frequency: Daily Seatbelt Use: always Sunscreen Use: Yes Assistive Devices: Glasses Review of Systems All systems reviewed & are unremarkable except as noted in HPI & below. Physical Exam On physical exam of the right hip, she cannot lie flat on the table. Her hip is flexed at 30 degrees. She is severe pain with any range of motion.. Constitutional WD/WN, vitals as above Eyes PERRL, conjunctivae normal, anicteric sclerae ENMT external ear and nose normal, oropharynx normal Neck trachea midline, no thyromegaly Respiratory normal respiratory effort Cardiovascular RRR, no murmur, no edema Gastrointestinal (Abdomen) normal bowel sounds, soft, nontender, no hepatosplenomegaly Psychiatric A+Ox3, euthymic affect Results & Data Results & Data Laboratory Results . Diagnostic Findings X-rays of the right hip show severe osteoarthritis with joint space narrowing, osteophyte formation, and [id number] articulation. PG Care Time/CCT Total # of Minutes Spent Total Time Spent with Patient: Total time spent is greater than 50% in coordination of care (as documented) at patient's floor/unit and/or counseling patient: Coding Level of Care Code None Diagnoses Arthritis of right hip M16.11
[2024-03-22] MEDS: LR 500ML BOLUS, THEN 15ML/HR IV SCH (06:04)
[2024-03-22] MEDS: GABAPENTIN 300 MG CAP PO SCH (06:05)
[2024-03-22] MEDS: dexAMETHasone**PF** 10 MG/ML VIAL IV SCH (06:05)
[2024-03-22] MEDS: ACETAMINOPHEN 500 MG TAB PO SCH ×2 (06:05→15:49)
[2024-03-22] MEDS: FAMOTIDINE 20 MG TAB PO SCH (06:05)
[2024-03-22] MEDS: LR 60ML/HR IV SCH (06:05)
[2024-03-22] MEDS ORDERED: ROPIVACAINE 0.5% 5 MG/ML 30 ML VIAL ONE (06:17)
[2024-03-22] MEDS ORDERED: MIDAZOLAM HCL 1 MG/ML 2ML VIAL ONE ×2 (06:27→07:46)
[2024-03-22] MEDS ORDERED: LIDOCAINE 2% 2 ML VIAL/AMP(20MG/ML) INFIL ONE (06:27)
[2024-03-22] MEDS ORDERED: ONDANSETRON INJ 2 MG/ML 2 ML VIAL ONE (06:27)
[2024-03-22] MEDS ORDERED: PROPOFOL IV EMULSION 10 MG/ML 20 ML VIAL IV ONE ×3 (06:27→08:48)
[2024-03-22] MEDS ORDERED: fentaNYL citrate PF 100 MCG/2 ML VIAL ONE (06:27)
[2024-03-22] MEDS ORDERED: DEXAMETHASONE SOD INJ 4 MG/ML VIAL ONE (06:27)
--- NOTE | 2024-03-22 06:30 | History & Physical Bridge Note ---
Date of Service March 22, 2024 History & Physical Bridge Note I have examined the patient, reviewed the History & Physical and in the interval since the performance of the History & Physical I have noted the following changes of clinical significance: no changes noted
[2024-03-22] MEDS ORDERED: PHENYLEPHRINE 100MCG/ML 5ML SYR ONE (06:38)
[2024-03-22] MEDS: TRANEXAMIC ACID 1,000 MG **IV Pre-op IV SCH (06:39)
[2024-03-22] MEDS ORDERED: ONDANSETRON INJ 2 MG/ML 2 ML VIAL IV PRN ×2 (06:39→10:00)
[2024-03-22] MEDS ORDERED: HYDROmorphone INJ 1 MG/ML SYRINGE IV PRN (06:39)
[2024-03-22] MEDS ORDERED: KETOROLAC 30 MG/ML VIAL IV PRN (06:39)
[2024-03-22] MEDS ORDERED: ATROPINE SULFATE 0.1 MG/ML 10ML SYR IV PRN (06:39)
[2024-03-22] MEDS ORDERED: ePHEDrine sulfate 50 MG/ML AMP IV PRN (06:39)
[2024-03-22] MEDS: ceFAZolin 2000MG 2,000 MG/15 ML SYR IV SCH ×2 (07:03→16:04)
[2024-03-22] MEDS ORDERED: ePHEDrine sulfate 50 MG/5 ML SYR ONE (07:34)
[2024-03-22] MEDS ORDERED: DexMEDEtomidine HCL IV 100 MCG/ML VIAL IV ONE ×2 (07:56→07:57)
[2024-03-22] MEDS: ROPIV 0.5% 246mg, Ketorolac 30mg, EPINEPHrine 0.5mg in NSS INFIL SCH (08:02)
[2024-03-22] MEDS: TRANEXAMIC ACID 1,000 MG **IV Intra-op IV SCH (08:31)
--- NOTE | 2024-03-22 08:37 | Operative Report ---
PG Post Operative Report Pre & Post Diagnosis Operation Date: 03/22/24 07:00 Pre-Op Diagnosis: Right Hip Arthritis Post-Op Diagnosis: Right Hip Arthritis I identified the patient and participated in the time-out.: Yes Procedure Operation Date: 03/22/24 07:00 Actual Procedures p Right Anterior Total Hip Arthroplasty(Right) - Immanuel Bryan DO Surgeon Immanuel Bryan DO Product Planner Allan Win PA-C Estimated Blood Loss 200 Findings Consistent with Post-Op Diagnosis Specimens Right femoral head Description of Procedure Implants used I used a [employer] total hip arthroplasty system with a size 13 echo cemented stem, a 54 mm G7 cup with a 25mm screw, an E1 polyethylene liner, a 40 mm ceramic head with a +6 neck. Cherelle arrived at the hospital for the above procedure. She was seen in the preoperative holding area and the operative extremity was identified and signed. She was given a spinal anesthetic, a preoperative antibiotic, and TXA. She was then taken back to the operating room and laid on the table in the supine position. She was given basic sedation. The operative leg was secured to a Puristst leg positioner. The hip was then prepped and draped in sterile fashion. A timeout was done and the patient and the operative extremity was properly identified. An anterior approach was used. Dissection was taken down through the fascia and the tensor muscle belly was retracted laterally and the rectus was retracted medially. The circumflex vessels were identified and ligated. The capsule was then incised and tagged for later repair. The femoral neck was then cut and the femoral head was removed. The acetabulum was exposed. Time was spent doing a complete circumferential labral release. Sequential reaming of the acetabulum up to a size 53 reamer was done. Final reamings were done under fluoroscopy to ensure appropriate version. A Biomet 54 mm G7 cup was then impacted into place. A single 25 mm screw was placed. The E1 polyethylene liner was then snapped into place. Surrounding soft tissues were then injected with 100 cc of an orthopedic pain control cocktail. The proximal femur was then exposed. Sequential broaching up to a size 15 broach was done. Off that broach a size 40 head with a +6 neck was trialed. The hip was reduced and fluoroscopic images showed anatomic alignment of the implants in acceptable length. The broach was removed. The final size 13 echo stem was then cemented into place. A ceramic 40 mm head with a +6 neck was then impacted onto the stem and the hip was reduced. Final fluoroscopic images showed anatomic alignment of the hip. The capsule was then closed with #1 Vicryl suture. A dilute betadyne lavage was then done for 3 minutes. The joint was then irrigated with normal saline solution. The fascia was closed with #1 PDS suture. Skin was closed with 2-0 Vicryl, alfonso, and a Silverlon dressing. She was then transferred to a hospital bed and taken to the post anesthesia care unit in stable condition. She tolerated the procedure well. Allan Win PA-C, was present for the entire procedure. He was critical for patient positioning, prepping, draping, retraction exposure, wound closure and application of sterile dressing. I attest to the content of the Intraoperative Record and any orders documented therein. Any exceptions are noted below.
--- NOTE | 2024-03-22 09:35 | Fluoroscopy Report ---
FL hip RT 1V CLINICAL HISTORY: RIGHTright hip arthroplasty COMPARISON STUDY: 12/16/2023 FLUOROSCOPY TIME: 12.7 seconds FLUOROSCOPY IMAGES: 1 EXPOSURE DOSE: 1.6418 mGy FINDINGS: Right hip arthroplasty demonstrates satisfactory alignment. Expected postoperative soft tis lora swelling with deep tissue air. No acute fracture or unexpected opaque foreign body. IMPRESSION: Fluoroscopic assistance as above. ACT 112: Negative or not required by law. Electronically signed by: Milton Staples M.D. 03/22/2024 9:33 AM
--- NOTE | 2024-03-22 09:41 | XRay Report ---
XR hip 1V RT w pelvis CLINICAL HISTORY: Postoperative evaluation. COMPARISON: Right hip radiographs December 16, 2023. FINDINGS: Alignment of the total right hip arthroplasty is anatomic. There are skin alfonso. No janelle prosthetic fracture or unexpected radiopaque foreign bodies are present. There is an acetabular screw . IMPRESSION: Expected findings following total right hip arthroplasty. ACT 112: Negative or not required by law. Electronically signed by: Bola Stallworth M.D. 03/22/2024 9:40 AM
[2024-03-22] MEDS ORDERED: oxyCODONE HCL IR 5 MG TAB (IMMEDIATE RELEASE) PO PRN (10:00)
[2024-03-22] MEDS ORDERED: MAGNESIUM HYDROXIDE SUSP 30 ML UDC PO PRN (10:00)
[2024-03-22] MEDS ORDERED: NALOXONE HCL 0.4 MG/1 ML VIAL/CARP IV PRN (10:00)
[2024-03-22] MEDS ORDERED: HYDROmorphone INJ 0.5 MG/0.5 ML SYR IV PRN (10:00)
[2024-03-22] MEDS ORDERED: bisacodyL 10 MG SUPP PR PRN (10:00)
[2024-03-22] MEDS ORDERED: METOCLOPRAMIDE HCL INJ 5 MG/ML 2 ML VIAL IV PRN (10:00)
[2024-03-22] MEDS: ORTHO JOINT ANESTHETIC ONE (10:11)
--- NOTE | 2024-03-22 10:43 | Anesthesiology Progress Note ---
Date of Service March 22, 2024 Anesthesia Post Procedure Vital Signs Vital Signs: Temp Pulse Pulse Pulse Resp BP Pulse Ox 03/22/24 10:33 68 16 119/73 95 03/22/24 10:04 36.4 C L 64 16 113/68 94 03/22/24 09:49 66 14 100/56 L 93 03/22/24 09:40 67 13 101/55 L 94 03/22/24 09:30 36.4 C L 74 16 109/71 98 03/22/24 09:20 65 18 91/46 L 99 03/22/24 09:10 68 20 101/54 L 100 03/22/24 09:02 36.7 C 72 15 105/51 L 98 03/22/24 05:44 36.7 C 63 18 136/73 96 O2 Del Method O2 Flow Rate 03/22/24 10:33 Room Air 03/22/24 10:04 Room Air 03/22/24 09:49 Room Air 0 03/22/24 09:40 Room Air 0 03/22/24 09:30 Room Air 0 03/22/24 09:20 Oxymask 4 03/22/24 09:10 Oxymask 8 03/22/24 09:02 Oxymask 8 03/22/24 05:44 Room Air Transfer of Care Handoff Completed per policy Notes Mental Status: alert / awake / arousable Patient Amnestic to Procedure: Yes Nausea / Vomiting: adequately controlled Pain: adequately controlled Airway Patency, RR, SpO2: stable & adequate BP & HR: stable & adequate Hydration State: stable & adequate Neuraxial Anesthesia: was administered and sensory block is resolving Anesthetic Complications: no major complications apparent
[2024-03-22 15:53] VITALS: O2SAT 94
[2024-03-22] MEDS: METOPROLOL SUCC 50MG EXT REL TAB PO ONE (17:51)
[2024-03-22] MEDS: DOCUSATE SODIUM 100 MG CAP PO SCH (21:04)
[2024-03-22] MEDS: SENNA 8.6 MG TAB PO SCH (21:04)
[2024-03-23 07:06] VITALS: BP 107/71; PULSE 61; RESP 16; TEMP 97.5
[2024-03-23] MEDS: ASPIRIN 81 MG ECTAB PO SCH (07:53)
[2024-03-23] MEDS: METOPROLOL SUCC 50MG EXT REL TAB PO SCH (07:53)
[2024-03-23] MEDS: dexAMETHasone 4 MG TAB PO SCH (07:53)
[2024-03-23] MEDS: APIXABAN 5 MG TABLET PO SCH (07:53)
[2024-03-23] MEDS: ROSUVASTATIN CALCIUM 20 MG TAB PO SCH (07:54)
[2024-03-23] MEDS: PSYLLIUM or GUAR GUM FIBER 4GM PACKET PO SCH (07:54)
[2024-03-23] MEDS: MULTIVITAMIN TAB PO SCH (07:54)
[2024-03-23] MEDS: traMADol HCL 50 MG TABLET PO PRN (08:25)
--- NOTE | 2024-03-23 09:23 | Orthopedic Progress Note ---
Date of Service March 23, 2024 Assessment & Plan (1) Status post right hip replacement: Assessment: Status post right hip replacement. Plan: Overall, she is doing quite well today with good pain control to the right hip. She will work with physical therapy later this morning to work on ambulation and range of motion exercises. She can be discharged home later this morning pending formal physical therapy evaluation and recommendations. She was restarted on her Eliquis and aspirin for DVT prophylaxis. Prescription sent to pharmacy. Dressings can be changed today prior to discharge. She is aware that the stress should remain in place for the next 48 hours. After 48 hours, if the surgical site is dry, she may allow the alfonso to be open to air. She will follow-up with orthopedics in 2 weeks for postoperative management or sooner if needed. She verbalized understanding and agrees with this plan. Subjective . Cherelle was seen this morning resting comfortably in no apparent distress. She notes that her pain is well-controlled today to the right hip. She has been up and out of bed with no significant issues. She has yet to work with physical therapy at this morning. She denies any concerns with her surgical incision site. She denies any active bleeding, discharge, or signs of infection. She denies any other concerns today. Review of Systems All systems reviewed & are unremarkable except as noted in HPI & below. Physical Exam . On physical examination of the right hip, dressings are clean, dry, intact. No signs of active bleeding, discharge, or signs of infection. Slight tenderness to palpation over the surgical site. Limited range of motion secondary to postoperative stiffness and soreness. Calf soft nontender to palpation. Negative Homans' sign. Intact plantarflexion and dorsiflexion to the right ankle. +2 DP and PT pulses. Less than 2-second capillary refill. Normal sensation. Neurovascular intact. Results & Data Results & Data Laboratory Results . Diagnostic Findings . Hip X-Ray 03/22/24 07:00 FL hip RT 1V CLINICAL HISTORY: RIGHTright hip arthroplasty COMPARISON STUDY: 12/16/2023 FLUOROSCOPY TIME: 12.7 seconds FLUOROSCOPY IMAGES: 1 EXPOSURE DOSE: 1.6418 mGy FINDINGS: Right hip arthroplasty demonstrates satisfactory alignment. Expected postoperative soft tissue swelling with deep tissue air. No acute fracture or unexpected opaque foreign body. IMPRESSION: Fluoroscopic assistance as above. ACT 112: Negative or not required by law. Electronically signed by: Milton Staples M.D. 03/22/2024 9:33 AM Hip/Pelvis X-Ray 03/22/24 09:06 XR hip 1V RT w pelvis CLINICAL HISTORY: Postoperative evaluation. COMPARISON: Right hip radiographs December 16, 2023. FINDINGS: Alignment of the total right hip arthroplasty is anatomic. There are skin alfonso. No periprosthetic fracture or unexpected radiopaque foreign bodies are present. There is an acetabular screw. IMPRESSION: Expected findings following total right hip arthroplasty. ACT 112: Negative or not required by law. Electronically signed by: Bola Stallworth M.D. 03/22/2024 9:40 AM PG Care Time/CCT Total # of Minutes Spent Total Time Spent with Patient: Total time spent is greater than 50% in coordination of care (as documented) at patient's floor/unit and/or counseling patient: Coding Level of Care Code 50531 Post Operative Follow-Up Diagnoses Status post right hip replacement Z96.641
--- NOTE | 2024-03-23 09:25 | Discharge Summary ---
Date of Service March 23, 2024 Admission HPI (Per Admitting) Cherelle is a pleasant 73-year-old female who has been dealing with chronic increasing right hip and groin pain. She saw my partner, Dr. 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 After failing conservative treatment, she has elected to proceed with a right anterior total of arthroplasty. Admission Exam (Per Admitting) On physical exam of the right hip, she cannot lie flat on the table. Her hip is flexed at 30 degrees. She is severe pain with any range of motion.. Principal Diagnosis Same as "Discharge Diagnosis" noted below under Discharge Instructions. Discharge Exam . On physical examination of the right hip, dressings are clean, dry, intact. No signs of active bleeding, discharge, or signs of infection. Slight tenderness to palpation over the surgical site. Limited range of motion secondary to postoperative stiffness and soreness. Calf soft nontender to palpation. Negative Homans' sign. Intact plantarflexion and dorsiflexion to the right ankle. +2 DP and PT pulses. Less than 2-second capillary refill. Normal sensation. Neurovascular intact. Discharge Data Procedures Performed Operation Date: 03/22/24 07:00 Actual Procedures p Right Anterior Total Hip Arthroplasty(Right) - Immanuel Bryan, Ordered Studies 03/22/24 07:00 FL hip RT 1V Routine Hospital Course (1) Status post right hip replacement: On March 22, 2024 Cherelle arrived at [facility] and underwent a right anterior total hip arthroplasty performed by Dr. Bryan with no complications. She had a spinal anesthetic. Postoperatively, she was transferred to the PACU for immediate postoperative management and then t ransferred to the general orthopedic floor in stable condition. Her hospital course was uneventful. On postoperative day #1, her vital signs are stable and her pain is well-controlled. She was restarted on her Eliquis and aspirin for DVT prophylaxis. She participated well with physical therapy working on ambulation and range of motion exercises. She was then discharged home in stable condition. She will follow-up with orthopedics in 2 weeks for postoperative management. PG Care Time/CCT Total # of Minutes Spent Total Time Spent with Patient: Total time spent is greater than 50% in coordination of care (as documented) at patient's floor/unit and/or counseling patient: Discharge Plan Discharge Items Patient Disposition: Home - Home Health Services Reason For Visit: Right Hip Arthritis Discharge Diagnosis: Status Post Right Anterior NICK Activity: Per Instructions section Non-emergency contact: Surgeon Call non-emergency contact if: your temperature is above 101.5, your wound has increased redness, your wound has increased drainage and your wound pain has increased Follow-up/Referrals: Karen Horner DO [Primary Care Provider] - Diet: Regular Addtl Attending Provider Instructions: Activity and Therapy Recommendations: * If you are using [facility] then therapy will be provided at your home until they feel you have accomplished all of your goals. * If you are using [facility] then Physical Therapy will be provided until they feel you are ready to start Outpatient Physical Therapy. * If you are not using home therapy then Outpatient Physical Therapy should start about 3-5 days from your day of surgery. Therapy will last about 6-10 weeks * You were shown a series of exercises in the hospital. Do these exercises three times each day including the exercises you were shown in physical therapy. * Get up and walk several times each day.~ For the first four weeks, try not to stand or walk for more than one hour at a time. If you do stand or walk for more than one hour, you will not hurt anything, but your leg will likely swell.~~ * As you feel comfortable, you may change from the walker or crutches to a cane and~then to independent walking. Medications: * Narcotic You will likely be sent home from the hospital with a prescription for the narcotic pain medication that worked best throughout your stay. * Cefadroxil -take the antibiotic twice a day for 10 days to help prevent infec tion. * Eliquis And Aspirin- Continue to take as prescribed. * Other medications may be prescribed for specific circumstances. If you have any questions, please call the office at . * Resume previous home medications unless otherwise instructed TEDs/Elastic Stockings: The white elastic stockings help limit swelling and prevent blood clots from forming in your legs. The more you wear them, the more they work. Wear them for six weeks. Dressing Care: Dressings will be changed prior to discharge. Keep new dressings in place for 48 hours. After, you may remove dressing on your own or under guidance from Home Health. If dry, you may leave the alfonso open to air. If surgical site is dry, you may shower with the alfonso exposed. Let soapy water run over the alfonso and pat them dry. Do not scrub or soak the incision. Showering: You may shower with the Silverlon dressing in place. Do not let the shower spray hit the dressing directly. Pat the Silverlon dressing dry. If the dressing becomes wet underneath, then simply remove the dressing. Keep the incision dry until you are 7 days out from the day of surgery. After 7 days you may remove the Silverlon dressing and shower with the alfonso exposed. Let soapy water run over the alfonso and pat them dry. Do not scrub or soak the incision. Diet: You may resume your previous diet. Things To Watch For: * Drainage from the incision site that occurs more than one week after your surgery. * Increased redness at the incision site. * Fever above 102 degrees Fahrenheit. * Unusual chest pain or shortness of breath. * Call [facility] at with any of the above problems Follow-Up Visit: Follow-up with Dr. Bryan's office 2-3 weeks after your day of surgery. We will remove your alfonso and answer any questions. If you have any additional questions or concerns, Dr Bryan is usually in the office at the same time and will be available An appointment was probably scheduled when you signed-up for surgery in the office. If you have any questions call Office Instructions: More detailed instructions as well as Frequently Asked Questions were provided in a folder by our office when you signed-up for surgery. Please review these instructions when you get home. If you have any further questions or concerns, please feel free to call the office at [phone] Pending Studies at Discharge: No Stand-Alone Forms: My [facility], Smoking Cessation Medications and DC Order Prescriptions: New tramadol 50 mg Tablet 50 mg PO Q6H PRN (Reason: pain) Qty: 30 0RF cefadroxil 500 mg capsule 500 mg PO BID 10 Days Qty: 20 0RF Continued Eliquis 5 mg tablet 5 mg PO BID Qty: 180 3RF Hold Instructions: pt waiting to talk to cardiology first ascorbate calcium (vitamin C) 500 mg tablet 500 mg PO DAILY calcium carbonate [Calcium 500] 500 mg PO QAM zinc citrate 50 mg PO QAM cholecalciferol (vitamin D3) 2,000 mg PO QAM rosuvastatin 40 mg tablet 40 mg PO QAM aspirin [Adult Aspirin Regimen] 81 mg tablet,delayed release (DR/EC) 81 mg PO QAM Metamucil 3.4 gram/5.4 gram Powder 2 tbsp PO QAM metoprolol succinate 50 mg tablet extended release 24 hr 50 mg PO QAM diphenhydramine-acetaminophen [Tylenol PM Extra Strength] 25-500 mg Tablet 1 tab PO HS PRN (Reason: Sleep) Admission Data Admit Date/Time: 03/22/24 09:06 Attending Provider: Immanuel Bryan Admit Provider: Immanuel Bryan Primary Care Provider: Karne Horner
== END 2024-03-23 11:31 | disposition home health service (06) ==
LOC: 3E 05:19 → ASU 05:19